=== PATIENT | female | born 1950 | race Caucasian/White ===

== ENCOUNTER 2016-11-21 12:43 | Outpatient (CLI) | payer MEDICARE ==
[2016-11-21 13:43] LABS: #Basophils 0.1 thou/uL (0.0-0.2); #Eosinphils 0.2 thou/uL (0.0-0.7); #Lymphocytes 2.5 thou/uL (1.20-3.40); #Monocytes 0.8 thou/uL (0.11-0.59); #Neutrophils 5.2 thou/uL (1.40-6.50); %Basophils 1.5 % (0.0-1.0); %Eosinophils 2.8 % (0.0-10.0); %Lymphocytes 27.7 % (21.0-51.0); %Monocytes 8.6 % (0.0-10.0); %Neutrophils 59.4 % (42.0-75.0); Hemoglobin 14.1 g/dL (12.0-16.0); Mean Corpuscular HGB CONC 33.1 g/dL (32.0-36.0); Mean Corpuscular Hemoglobin 29.8 pg (27.0-31.0); Mean Corpuscular Volume 89.9 fl (81.0-99.0); Mean Platelet Volume 9.1 fL (7.4-10.4); Platelet Count 246 thou/uL (130-400); RBC Distribution Width 12.1 % (11.5-14.5); Red Blood Cell (RBC) Count 4.72 mill/uL (4.20-5.40); White Blood Cell (WBC) Count 8.8 thou/uL (4.8-10.8)
[2016-11-21 13:47] LABS: ALT (SGPT) 20 U/L (0-55); AST (SGOT) 20 U/L (5-34); Alkaline Phosphatase 58 U/L (40-150); Anion Gap 14 mmol/L (10-20); BUN (Urea Nitrogen) 11 mg/dL (9.8-20.1); Bilirubin, Total 0.5 mg/dL (0.2-1.2); Calc. Creatinine Clearance 0 mL/min (70-130); Calcium 9.5 mg/dL (7.8-10.44); Carbon Dioxide 23 mmol/L (23-31); Chloride 106 mmol/L (98-107); Estimated GFR-MDRD 78; Globulin 2.7 g/dL (2.4-3.5); Glucose 135 mg/dL (80-115); Potassium 4.4 mmol/L (3.5-5.1); Protein, Total 6.7 g/dL (5.8-8.1); Sodium 139 mmol/L (136-145)
--- NOTE | 2016-11-22 07:42 | RAD ---
THREE VIEWS OF THE SINUSES 11/21/16 INDICATION: Congestion. FINDINGS: No apparent mucosal thickening or air fluid level is evident. Orbital rims are intact. No acute osse ous abnormality is evident. IMPRESSION: No air fluid level or prominent mucosal thickening demonstrated. POS: [facility]
--- NOTE | 2016-11-22 07:42 | RAD ---
PA AND LATERAL CHEST X-RAY 11/21/16 HISTORY: Chest congestion. FINDINGS: The cardiac silhouette is at the upper limits of normal in size. There are bibasilar increased inter stitial densities with more coarse interstitial opacity seen overlying the lower lobes on the latera l projection. The findings may be related to developing infectious process versus atelectasis. Follo wup to resolution is recommended. Pulmonary vasculature is within normal limits. There is right conv exed curvature of the thoracic spine with degenerative change in the spine. IMPRESSION: Bibasilar interstitial opacities which could be related to either atelectasis or developing infectio us process. Followup to resolution is recommended. POS: [facility]
== END 2016-11-21 12:44 | disposition home or self-care (01) ==
LOC: MADRAD 12:43
PROVIDERS: ATTEND Family Medicine
DX: R05 Cough (principal); R06.02 Shortness of breath
CPT/HCPCS: 36415; 70220; 71020; 80050

== ENCOUNTER 2016-12-07 15:32 | Outpatient (CLI) | payer MEDICARE ==
[~2016-12-07 15:32] MED LIST: Iopamidol 370 76% 100 ML VIAL ONE
--- NOTE | 2016-12-07 17:12 | CT ---
EXAM: CHEST CT WITH CONTRAST 12/07/16 HISTORY: Wheezing and cough. COMPARISON: None. TECHNIQUE: Postcontrast chest CT is performed in the axial plane. Sagittal and coronal reformatted images are s ubmitted for interpretation. FINDINGS: No axillary lymphadenopathy. The visualized upper solid organs are unremarkable. There is a nonspeci fic periportal lymph node, measuring 1.4 cm. Small hiatal hernia is noted. No mediastinal mass or hematoma. There are nonspecific paratracheal and prevascular lymph nodes. No pericardial effusion. Heart size is normal. Central pulmonary arteries have appropriate contrast enh ancement. No obvious filling defects. Thoracic aorta and upper abdominal aorta have a normal caliber . No fat stranding. There are patchy interstitial opacities and ground glass opacities throughout th e lung parenchyma. Areas of fibrosis and scarring are favored. A superimposed interstitial infiltrat e cannot be completely excluded but is less favored. Comparison with prior imaging would be benefici al. If prior images are not available, followup CT in one month is recommended. Note is made of a small Bochdalek's hernia along the posterior aspect of the left hemithorax. No osteoblastic or osteolytic lesions. IMPRESSION: Patchy interstitial opacities predominantly involving the lung bases which are presumed to be due to fibrosis. Comparison with prior imaging would be beneficial. 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 If prior CT is available, addendum can be issued. POS: [facility]
== END 2016-12-07 15:33 | disposition home or self-care (01) ==
LOC: MADCT 15:32
PROVIDERS: ATTEND Family Medicine
DX: R06.02 Shortness of breath (principal); R05 Cough; R91.8 Other nonspecific abnormal finding of lung field
CPT/HCPCS: 36415; 71260; 82565; 84520

== ENCOUNTER 2017-01-23 12:18 | Outpatient (CLI) | payer MEDICARE ==
--- NOTE | 2017-01-23 16:14 | CT ---
CONTRAST ENHANCED CT OF THE THORAX 01/23/17 INDICATION: History of shortness of breath. COMPARISON: Prior exam dated 12/07/16. FINDINGS: The areas of interstitial thickening with peripheral bronchiectasis involving predominantly the lung bases is relatively stable. The extent of segmental volume loss within the lung bases appears sligh tly improved. More prominent focal nodular opacity seen within the right middle lobe. One of the lar gest nodules measuring 4.6 mm. This may reflect a focal area of more nodular subsegmental atelectasi s. There are a few shotty appearing lymph nodes within the mediastinum. This is stable to the prior exa m. Most prominent seen within the prevascular space measuring 8 mm. There is a small hiatal hernia. The visualized upper abdomen is unremarkable. No definite acute osseous abnormality is evident. Ther e is mild thoracic scoliosis. IMPRESSION: 1. Areas of interlobular and intralobular interstitial thickening likely related to underlying fibrosis with associated bronchiectasis is stable. This is suspicious for changes of interstitial michael ng disease. More prominent nodular opacities are present within the right middle lobe measuring up t o 4.6 mm. This may reflect an area of more rounded atelectasis. Short term followup in 6 to 8 weeks to document resolution is recommended. 2. Stable shotty appearing lymph nodes within the mediastinum. POS: [facility]
== END 2017-01-23 12:19 | disposition home or self-care (01) ==
LOC: MADCT 12:18
PROVIDERS: ATTEND Family Medicine
DX: R06.02 Shortness of breath (principal); J98.4 Other disorders of lung
CPT/HCPCS: 36415; 71260; 82565

== ENCOUNTER 2018-11-03 10:05 | Outpatient (CLI) | payer MEDICARE ==
--- NOTE | 2018-11-03 11:49 | RAD ---
LEFT WRIST 3 VIEWS: Date: 11/03/18 COMPARISON: None. HISTORY: Knot on the back of wrist for a couple of months. FINDINGS: There is negative ulnar variance. There is degenerative change involving the distal radial ulnar join t with pseudoarthrosis formation, as well as subchondral sclerosis and osteophyte formation. There is a nonspecific, round, coarse calcification measuring 7.0 mm on the lateral examination, dors al to the distal radius, etiology uncertain. This could be related to heterotopic ossification or the sequelae of prior injury. IMPRESSION: Nonspecific calcification along the dorsal aspect of the wrist, likely accounting for the palpable ab normality. Etiology is uncertain. Negative ulnar variance with degenerative change and pseudoarthrosi s formation. POS: [facility]
--- NOTE | 2018-11-03 11:51 | RAD ---
THREE VIEWS LEFT HAND: Date: 11-03-18 History: Knot on back of wrist for a couple of months. No known trauma. 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 No fracture or disloc ation seen. 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 No fracture or dislocation is seen. There is a rounded area of heterotopic ossification seen posterior to the distal radius near the leve l of the radiocarpal joint which measures 7 mm x 6 mm. This was only well seen on the lateral project ion. The exact etiology is uncertain. IMPRESSION: 1. Focal area of heterotopic ossification, dorsal aspect of the wrist, at the level of the distal rad ius near the radial carpal joint. This likely corresponds to region of patient's palpable abnormality . The exact etiology is uncertain. Depending upon clinical concern, MRI may be helpful for further ev aluation. 2. Prominent ulnar minus variance with prominent degenerative changes at the area of anomalus articul ation with the distal radius. 3. No acute fracture. POS: [facility]
== END 2018-11-03 10:06 | disposition home or self-care (01) ==
LOC: MADLAB 10:05
PROVIDERS: ATTEND Family Medicine
DX: M25.532 Pain in left wrist (principal); M67.432 Ganglion, left wrist; R22.32 Localized swelling, mass and lump, left upper limb; M19.032 Primary osteoarthritis, left wrist; M89.8X8 Other specified disorders of bone, other site

== ENCOUNTER 2019-10-26 09:57 | Outpatient (CLI) | payer MEDICARE ==
--- NOTE | 2019-10-26 13:10 | CT ---
CT OF CHEST PERFORMED WITHOUT CONTRAST ENHANCEMENT: HISTORY: Followup of lung nodule. COMPARISON: A 01/23/2017 exam. FINDINGS: Two nodular densities seen within the right middle lobe axial image 31 are stable. They measure in t he 4 mm range. A small subpleural nodule measuring 2-3 mm seen on axial image 48 within the left low er lobe. This is difficult to compare to the previous examination as there are more extensive inters titial changes within the lung bases as compared to that prior study. There has been a considerable improvement to the interstitial change, although there is still subpleural reticular changes which is probably chronic in nature. No significant mediastinal adenopathy appreciated on this noncontrast study. There are coronary calc ifications present. A small hiatal hernia is noted. Visualized liver parenchyma is unremarkable. Right and left adrenal glands are normal. IMPRESSION: 1. Stable right middle lobe pulmonary nodules as compared to the prior examination. 2. Definite improvement to the interstitial lung changes within the bases still with some vague reti cular ground-glass opacities seen in the lung bases, probably chronic in nature. POS: [facility]
== END 2019-10-26 09:58 | disposition home or self-care (01) ==
LOC: MADCT 09:57
PROVIDERS: ATTEND Internal Medicine Pulmonary Disease
DX: R91.8 Other nonspecific abnormal finding of lung field (principal)
CPT/HCPCS: 71250

== ENCOUNTER 2021-02-22 14:47 | Outpatient (CLI) | payer MEDICARE | END 2021-02-22 14:48 | disposition home or self-care (01) | LOC: MADRAD 14:47 | PROVIDERS: ATTEND Internal Medicine Pulmonary Disease | DX: R91.8 Other nonspecific abnormal finding of lung field (principal) | CPT/HCPCS: 71250 ==

== ENCOUNTER 2021-05-26 08:58 | Emergency (ER) | payer MEDICARE ==
[2021-05-26 10:10] LABS: #Lymphocytes 0.4 thou/uL (1.20-3.40); #Monocytes 0.5 thou/uL (0.11-0.59); #Neutrophils 5.5 thou/uL (1.40-6.50); %Basophils 0.4 % (0.0-1.0); %Eosinophils 0.1 % (0.0-10.0); %Lymphocytes 6.5 % (21.0-51.0); %Monocytes 7.6 % (0.0-10.0); %Neutrophils 85.4 % (42.0-75.0); Hemoglobin 13.2 g/dL (12.0-16.0); Mean Corpuscular HGB CONC 32.4 g/dL (32.0-36.0); Mean Corpuscular Hemoglobin 30.3 pg (27.0-31.0); Mean Corpuscular Volume 93.4 fL (78.0-98.0); Platelet Count 174 thou/uL (130-400); RBC Distribution Width 12.8 % (11.5-14.5); Red Blood Cell (RBC) Count 4.38 mill/uL (4.20-5.40); White Blood Cell (WBC) Count 6.4 thou/uL (4.8-10.8)
[2021-05-26 10:28] LABS: ALT (SGPT) 12 U/L (8-55); AST (SGOT) 27 U/L (5-34); Albumin 3.6 g/dL (3.4-4.8); Alkaline Phosphatase 40 U/L (40-110); Anion Gap 18 mmol/L (10-20); BUN (Urea Nitrogen) 31 mg/dL (9.8-20.1); Bilirubin, Total 0.7 mg/dL (0.2-1.2); CK (CPK) 53 U/L (29-168); Calc. Creatinine Clearance 0 mL/min (70-130); Calcium 8.4 mg/dL (7.8-10.44); Carbon Dioxide 15 mmol/L (23-31); Chloride 102 mmol/L (98-107); Globulin 3.2 g/dL (2.4-3.5); Glucose 165 mg/dL (80-115); Potassium 5.7 mmol/L (3.5-5.1); Protein, Total 6.8 g/dL (5.8-8.1); Sodium 129 mmol/L (136-145)
[2021-05-26] MEDS ORDERED: Ibuprofen 800 MG TAB ONE (10:31)
[2021-05-26] MEDS ORDERED: Aspirin Chewable 81 MG TAB ONE (11:01)
[2021-05-26] MEDS ORDERED: Dexamethasone 10 MG/ML VIAL ONE (11:01)
[2021-05-26] MEDS ORDERED: Azithromycin 500 MG VIAL ONE (11:01)
[2021-05-26] MEDS ORDERED: Sodium Chloride 0.9% 250 ML 250 ML ONE (11:01)
[2021-05-26] MEDS ORDERED: cefTRIAXone\\ROCEPHIN 2 GM VIAL ONE (11:01)
[2021-05-26] MEDS ORDERED: Sodium Chloride 0.9% 100 ML ONE (11:01)
[2021-05-26 12:42] LABS: SARS-CoV-2 NAA Rapid Test DETECTED (NotDetected)
== END 2021-05-26 13:08 | disposition short-term general hospital (02) ==
LOC: MADERS 08:58
DX: U07.1 COVID-19 (principal); J40 Bronchitis, not specified as acute or chronic; I50.9 Heart failure, unspecified; R79.1 Abnormal coagulation profile; E87.5 Hyperkalemia; E87.1 Hypo-osmolality and hyponatremia
CPT/HCPCS: 71045; 80053; 82550; 83605; 83880; 84484; 85025; 85379; 86140; 87040; 93005; 96365; 96367; 96375; 99285; U0002; J0456; J0696; J1100; J3490; J7050

== ENCOUNTER 2021-10-03 10:16 | Emergency (ER) | payer MEDICARE ==
[2021-10-03 11:27] LABS: Hemoglobin 16.3 g/dL (12.0-16.0); Mean Corpuscular Volume 94.2 fL (78.0-98.0); Red Blood Cell (RBC) Count 5.55 mill/uL (4.20-5.40); White Blood Cell (WBC) Count 4.5 thou/uL (4.8-10.8)
[2021-10-03 11:28] LABS: #Basophils 0.1 thou/uL (0.0-0.2); #Eosinphils 0.2 thou/uL (0.0-0.7); #Lymphocytes 0.7 thou/uL (1.20-3.40); #Monocytes 0.7 thou/uL (0.11-0.59); #Neutrophils 2.9 thou/uL (1.40-6.50); %Basophils 2.3 % (0.0-1.0); %Eosinophils 3.4 % (0.0-10.0); %Lymphocytes 14.9 % (21.0-51.0); %Monocytes 14.6 % (0.0-10.0); %Neutrophils 64.7 % (42.0-75.0); ALT (SGPT) 18 U/L (8-55); AST (SGOT) 16 U/L (5-34); Albumin 4.1 g/dL (3.4-4.8); Alkaline Phosphatase 50 U/L (40-110); Anion Gap 16 mmol/L (10-20); BUN (Urea Nitrogen) 21 mg/dL (9.8-20.1); Bilirubin, Total 0.5 mg/dL (0.2-1.2); Calc. Creatinine Clearance 0 mL/min (70-130); Calcium 9.3 mg/dL (7.8-10.44); Carbon Dioxide 20 mmol/L (23-31); Chloride 108 mmol/L (98-107); Globulin 2.8 g/dL (2.4-3.5); Glucose 111 mg/dL (80-115); Mean Corpuscular HGB CONC 31.1 g/dL (32.0-36.0); Mean Corpuscular Hemoglobin 29.3 pg (27.0-31.0); Mean Platelet Volume 8.3 fL (7.4-10.4); Platelet Count 215 thou/uL (130-400); Potassium 4.3 mmol/L (3.5-5.1); Protein, Total 6.9 g/dL (5.8-8.1); RBC Distribution Width 11.8 % (11.5-14.5); Sodium 140 mmol/L (136-145)
[2021-10-03] MEDS ORDERED: Sodium Chloride 0.9% 100 ML ONE (11:49)
[2021-10-03] MEDS ORDERED: Diltiazem 125 MG/25 ML ONE (11:49)
[2021-10-03] MEDS ORDERED: Furosemide 20 MG/2 ML VIAL ONE (12:17)
== END 2021-10-03 18:22 | disposition short-term general hospital (02) ==
LOC: MADERS 10:16
DX: I48.91 Unspecified atrial fibrillation (principal); I51.7 Cardiomegaly; E87.70 Fluid overload, unspecified; E11.9 Type 2 diabetes mellitus without complications; Z79.899 Other long term (current) drug therapy; Z79.82 Long term (current) use of aspirin; Z79.84 Long term (current) use of oral hypoglycemic drugs
CPT/HCPCS: 71045; 80053; 83735; 83880; 84443; 84484; 85025; 93005; 96365; 96366; 96375; 96376; J1940; J3490

== ENCOUNTER 2022-08-09 09:27 | Outpatient (CLI) | payer MEDICARE | END 2022-08-09 09:28 | disposition home or self-care (01) | LOC: MADRAD 09:27 | PROVIDERS: ATTEND Internal Medicine Rheumatology | DX: M25.541 Pain in joints of right hand (principal); M25.522 Pain in left elbow; M33.10 Other dermatomyositis, organ involvement unspecified; M19.041 Primary osteoarthritis, right hand; M79.9 Soft tissue disorder, unspecified; M25.822 Other specified joint disorders, left elbow ==

== ENCOUNTER 2024-07-16 14:50 | Outpatient (CLI) | payer OTHER, MEDICARE | END 2024-07-16 14:51 | disposition home or self-care (01) | LOC: MADLAB 14:50 | PROVIDERS: ATTEND Specialist | DX: I48.0 Paroxysmal atrial fibrillation (principal); J90 Pleural effusion, not elsewhere classified; J98.11 Atelectasis | CPT/HCPCS: 71046 ==

== ENCOUNTER 2024-09-28 09:38 | Outpatient (CLI) | payer MEDICARE, OTHER | END 2024-09-28 09:39 | disposition home or self-care (01) | LOC: MADRAD 09:38 | PROVIDERS: ATTEND Family Medicine | DX: J90 Pleural effusion, not elsewhere classified (principal); J84.9 Interstitial pulmonary disease, unspecified; J98.11 Atelectasis | CPT/HCPCS: 71046 ==